=== PATIENT | male | born 1960 | race African-American/Black ===

== ENCOUNTER 2022-08-27 12:16 | Emergency (ER) | payer SELFPAY ==
[~2022-08-27] VITALS: Ht 177.8 cm; Wt 80.0 kg
[2022-08-27] MEDS ORDERED: MORPHINE SULFATE 2 MG/ML CPJ (NOT FOR IM USE) IV ONE (12:45)
[2022-08-27 12:56] LABS: BASOPHILS % 0.3 % (0.0-2.0); EOSINOPHILS % 1.8 % (0.0-5.0); HEMATOCRIT. 28.4 % (42.0-52.0); HEMOGLOBIN. 9.3 g/dL (14.0-18.0); LYMPHOCYTES % 11.3 % (20.0-50.0); MEAN CORPUSCULAR HEMOGLOBIN 27.1 pg (28.0-32.0); MEAN CORPUSCULAR VOLUME 82.9 fL (80.0-94.0); MEAN PLATELET VOLUME 7.6 fl (7.4-10.4); MONOCYTES % 9.6 % (2.0-8.0); PLATELET 427 x1000/uL (130-400); RED BLOOD CELL COUNT 3.43 mill/uL (4.7-6.1); RED CELL DISTRIBUTION WIDTH 15.1 % (11.6-14.6)
[2022-08-27 12:58] LABS: CHLORIDE 104 mEq/L (98-107)
[2022-08-27] MEDS ORDERED: MORPHINE SULFATE 4 MG/ML CPJ (NOT FOR IM USE) IV ONE ×2 (14:30→15:45)
[2022-08-27] MEDS ORDERED: HALOPERIDOL LACTATE 5MG/ML VIAL IM ONE (15:30)
[2022-08-27 17:09] VITALS: BP 136/58
== END 2022-08-27 17:12 | disposition home or self-care (01) ==
LOC: ER 12:16
DX: J95.03 Malfunction of tracheostomy stoma (principal); Y83.8 Other surgical procedures as the cause of abnormal reaction of the patient, or of later complication, without mention of misadventure at the time of the procedure; Y92.9 Unspecified place or not applicable; E11.22 Type 2 diabetes mellitus with diabetic chronic kidney disease; N18.6 End stage renal disease; Z99.2 Dependence on renal dialysis; Z85.12 Personal history of malignant neoplasm of trachea; Z98.890 Other specified postprocedural states
CPT/HCPCS: 36415; 70360; 80053; 85025; 96372; 96374; 96376; 99284; J1630; J2270; Z7610